=== PATIENT | male | born 1990 | race Caucasian/White ===

== ENCOUNTER 2020-05-04 17:23 | Inpatient (IN) | payer SELFPAY ==
[2020-05-04 18:41] VITALS: BP 118/65; PULSE 126; RESP 14; TEMP 38.7; O2SAT 96; BMI 22.8
[2020-05-04] MEDS: Acetaminophen 325 MG TABLET 650 MG PO (18:46)
--- NOTE | 2020-05-04 18:58 | XR_ITS ---
EXAMINATION: XR CHEST CLINICAL INFORMATION: Flank pain and fever COMPARISON: None TECHNIQUE: Frontal view of the chest was obtained. FINDINGS: No significant abnormality is noted involving the heart, lungs, mediastinum, bony thorax or soft tissues. XR/XR chest 1V IMPRESSION: Unremarkable examination.
--- NOTE | 2020-05-04 18:58 | ECG_ITS ---
Test Reason : FLU LIKE SYMP Blood Pressure : / mmHG Vent. Rate : 103 BPM Atrial Rate : 103 BPM P-R Int : 138 ms QRS Dur : 086 ms QT Int : 344 ms P-R-T Axes : 057 089 011 degrees QTc Int : 450 ms Sinus tachycardia Otherwise normal ECG No previous ECGs available Referred By: Mercedes Molina Electronically Signed By:KENNA ALEJO MD
--- NOTE | 2020-05-04 19:13 | ED.FEVER ---
HPI - Fever General Chief Complaint: Fever Stated Complaint: FEVER,CHILLS Time Seen by Provider: 05/04/20 18:55 Source: patient Mode of arrival: ambulatory Limitations: no limitations History of Present Illness HPI Narrative: 29-year-old male with no significant past medical history occasionally smokes marijuana presents with 2 days of malaise, fatigue, bilateral flank pain, dark brown urine, poor p.o. intake , palpitations and diaphoresis. He has been unable to get out of bed over the past 2 days. he denies chest pain and pressure, abdominal distention, edema, nausea, vomiting, diarrhea, constipation, sick contacts, headaches, difficulty moving arms and legs, trauma, crush injury, and excessive physical activity. MD elicited complaint: fever, malaise and weakness Onset (ago): day(s) (2) Relieving factors: nothing Associated symptoms: chills, myalgias, abdominal pain, dysuria and back/flank pain Treatments prior to arrival fever: acetaminophen, ibuprofen and cold medicine Related Data Home Medications Medication Instructions Recorded Confirmed No Known Home Meds 05/04/20 05/04/20 Allergies Allergy/AdvReac Type Severity Reaction Status Date / Time No Known Allergies Allergy Unverified 02/26/20 15:51 Review of Systems Review of Systems: Constitutional: Positive Fever, positive Chills ENT/Mouth: No sore throat Eyes: No Eye Pain, No Swelling, No Redness Cardiovascular: No Chest Pain, No SOB Respiratory: No Cough, No Sputum, No Wheezing Gastrointestinal: positive Nausea, no Vomiting, No Diarrhea, positive abdominal pain Genitourinary: positive Dysuria, no urinary frequency, no Hematuria, positive Flank Pain, no hesitancy Musculoskeletal: No joint pain, No Myalgias Skin: No Skin Lesions, No rash Neuro: No Numbness, No Headache, positive fatigue, positive weakness Psych: No Anxiety/Panic, No Depression Heme/Lymph: No Bruising, No Lymphadenopathy Endocrine: No Polyuria, No Polydipsia Yes all other systems are reviewed and are negative COUNT INCLUDES THE [facility] Past Medical History Attestation statement: The following information was validated with the patient. Medical History No known health problems Social History Social History Alcohol intake: never Smoked in Last 30 Days: No Use of substances other than those prescribed or required for medical reasons: No Advance Directives: No Advance Directives Information Provided: No Physical Exam Vital Signs: Vital Signs: Last Vital Signs Temp 98.7 F 05/04/20 23:54 Pulse 74 05/04/20 23:54 Resp 16 05/04/20 23:54 BP 116/62 05/04/20 23:54 Pulse Ox 98 05/04/20 23:54 Body Mass Index 22.8 Appearance: Alert. Oriented X3. moderate distress. febrile, tachycardic Head: Normal external exam. Normocephalic. Atraumatic. Eyes: PERRLA. EOMI. Conjunctiva and sclera normal. Eyelids normal. ENT: TM's Normal. Pharynx normal. Uvula midline. dry mucous membranes. No trismus noted. No drooling noted. No muffled voice noted. Neck: Normal inspection. Neck supple. No adenopathy. no meningeal signs. CVS: Tachycardic heart rate and rhythm. Heart sound normal. No murmurs noted. Pulses equal to all extremities. Respiratory: No respiratory distress. Painless inspiration. Breath sounds normal. No wheezes/rales/rhonchi noted. Chest nontender. No accessory muscle usage noted or decreased air movement noted. Abdomen: Soft and diffuse tenderness throughout all 4 quadrants. Bowel sounds normal in all 4 quadrants. No distention noted. No organomegaly noted. No visible injury noted. Back: significant bilateral CVA tenderness. Full range of motion noted. Skin: Skin warm and mildly diaphoretic. Normal skin color. Normal skin turgor. No rashes/lesions/lacerations noted. Extremities: No lower extremity edema. Extremities exhibit normal range of motion. Extremities nontender. Neuro: cranial nerves 2-12 intact, no focal neural deficits, strength 5/5 to all extremities, No motor deficit. No sensory deficit. Course Course Course Narrative: 29-year-old male with no significant past medical history occasionally smokes marijuana presents with 2 days of malaise, fatigue, bilateral flank pain, dark brown urine, poor p.o. intake and diaphoresis. He has been unable to get out of bed over the past 2 days. Initial lab values heart rate 126, temperature 101.6 oral, fit sepsis criteria, will order CBC, Chem 7, lactic, cultures, CT scan of chest and abdomen, resuscitate with 2 L of fluid and ceftriaxone. His urine is dark navya almost brown in color. Reevaluation(s) Reevaluation #1: 2 L normal saline completed, along with 1 g of ceftriaxone. Blood pressure is 105/53, heart rate 91, respiration rate 16, O2 sat 96% on room air. Patient appears more comfortable than initial presentation. Third L of normal saline infusing. CT scan of abdomen and chest pending. Time: 20:24 Reevaluation #2: discussion with hospitalist regarding plan of care, CT scan is negative for any acute findings, urinalysis indicates possible UTI however there are no nitrites or leukocyte esterase. We feel that source of infection has not been found, MRI is suggested however is unavailable tonight. We will give vancomycin and Zosyn, and admit for fever of unknown origin, sepsis, and possible UTI. Detailed discussion with patient regarding findings as well as plan to admit. Patient verbalized understanding of and agrees to plan of care. Time: 21:58 Consultations Consultation #1: Jonh Time: 20:22 MDM - Fever Differential Diagnosis Differential diagnosis: Likely fever of unknown origin, community acquired pneumonia, pyelonephritis, viral infection, sepsis and influenza Medical Records Attestation: I reviewed the patient's medical records. Lab Data Attestation: I reviewed the patient's lab results. Result diagrams: 05/04/20 19:14 05/04/20 19:14 Labs: Lab Results 05/04/20 05/04/20 05/04/20 Range/Units 19:14 19:14 19:14 WBC 16.3 H (4.8-10.8) X10*3/uL RBC 5.62 (4.60-5.80) X10*6/uL Hgb 16.5 (14.0-18.0) g/dl Hct 49.2 (42-52) % MCV 87.5 (80-98) fL MCH 29.4 (27.0-33.0) pg MCHC 33.5 (31.0-36.0) g/dl RDW 12.9 (11.0-16.0) % Plt Count 248 (160-400) X10*3/uL MPV 10.0 (9.4-12.4) fL Immature Gran % (Auto) 0.2 (0.0-0.4) % Neut % (Auto) 82.7 H (45-73) % Lymph % (Auto) 7.9 L (20-40) % Craven % (Auto) 8.8 (2-11) % Eos % (Auto) 0.1 (0-4) % Baso % (Auto) 0.3 (0-2) % Lymph # (Auto) 1.3 (1.2-4.9) X10*3/uL Craven # (Auto) 1.4 H (0.1-1.2) X10*3/uL Eos # (Auto) 0.0 (0.0-0.4) X10*3/uL Baso # (Auto) 0.1 (0.0-0.2) X10*3/uL Abs Immat Gran (auto) 0.04 H (0.00-0.03) X10*3/uL Absolute Neuts (auto) 13.5 H (2.0-8.3) X10*3/uL Absolute Nucleated RBC 0.000 (0.0-0.012) X10*3/uL Nucleated RBC % (auto) 0.0 (0.0-0.2) /100WBC Sodium 136 (135-145) mmol/L Potassium 3.4 (3.3-5.1) mmol/l Chloride 103 (96-108) mmol/L Carbon Dioxide 24 (22-29) mmol/L Anion Gap 12 (12-20) BUN 11 (9-16) mg/dL Creatinine 0.80 (0.5-1.4) mg/dL Estim Creat Clear Calc 133.0 Estimated GFR > 60 Random Glucose 121 H (60-115) mg/dL Lactic Acid 0.9 (0.5-2.0) mmol/L Calcium 9.2 (8.4-10.2) mg/dL Magnesium 1.9 (1.6-2.6) mg/dL Total Bilirubin 0.4 (0.0-1.0) mg/dL Direct Bilirubin 0.2 (0.0-0.5) mg/dL AST 13 (5-37) U/L ALT 11 (0-40) U/L Alkaline Phosphatase 71 (39-117) U/L Total Creatine Kinase 83 (38-174) U/L Troponin I High Sens (<3.5-35.0) ng/L Total Protein 7.5 (6.5-8.0) g/dL Albumin 4.3 (3.5-5.0) g/dL Lipase 6 L (8-78) U/L Urine Color Urine Appearance Urine pH (5.0-8.0) Ur Specific [place] (1.005-1.025) Urine Protein (NEG-TRACE) MG/DL Urine Glucose (UA) (NEG) MG/DL Urine Ketones (NEG) MG/DL Urine Blood (NEG) Urine Nitrite (NEG) Ur Leukocyte Esterase (NEG) Urine RBC (0) /HPF Urine WBC (0-4) /HPF Ur Squamous Epith Cells /LPF Calcium Oxalate Crystal /LPF Urine Bacteria /LPF Urine Mucus /LPF Coronavirus (PCR) (Negative) Influenza Type A (PCR) (Negative) Influenza Type B (PCR) (Negative) RSV RNA Qual (PCR) (Negative) 05/04/20 05/04/20 05/04/20 Range/Units 19:14 19:14 19:45 WBC (4.8-10.8) X10*3/uL RBC (4.60-5.80) X10*6/uL Hgb (14.0-18.0) g/dl Hct (42-52) % MCV (80-98) fL MCH (27.0-33.0) pg MCHC (31.0-36.0) g/dl RDW (11.0-16.0) % Plt Count (160-400) X10*3/uL MPV (9.4-12.4) fL Immature Gran % (Auto) (0.0-0.4) % Neut % (Auto) (45-73) % Lymph % (Auto) (20-40) % Craven % (Auto) (2-11) % Eos % (Auto) (0-4) % Baso % (Auto) (0-2) % Lymph # (Auto) (1.2-4.9) X10*3/uL [place]ven # (Auto) (0.1-1.2) X10*3/uL Eos # (Auto) (0.0-0.4) X10*3/uL Baso # (Auto) (0.0-0.2) X10*3/uL Abs Immat Gran (auto) (0.00-0.03) X10*3/uL Absolute Neuts (auto) (2.0-8.3) X10*3/uL Absolute Nucleated RBC (0.0-0.012) X10*3/uL Nucleated RBC % (auto) (0.0-0.2) /100WBC Sodium (135-145) mmol/L Potassium (3.3-5.1) mmol/l Chloride (96-108) mmol/L Carbon Dioxide (22-29) mmol/L Anion Gap (12-20) BUN (9-16) mg/dL Creatinine (0.5-1.4) mg/dL Estim Creat Clear Calc Estimated GFR Random Glucose (60-115) mg/dL Lactic Acid (0.5-2.0) mmol/L Calcium (8.4-10.2) mg/dL Magnesium (1.6-2.6) mg/dL Total Bilirubin (0.0-1.0) mg/dL Direct Bilirubin (0.0-0.5) mg/dL AST (5-37) U/L ALT (0-40) U/L Alkaline Phosphatase (39-117) U/L Total Creatine Kinase (38-174) U/L Troponin I High Sens < 3.5 (<3.5-35.0) ng/L Total Protein (6.5-8.0) g/dL Albumin (3.5-5.0) g/dL Lipase (8-78) U/L Urine Color YELLOW Urine Appearance HAZY Urine pH 6.0 (5.0-8.0) Ur Specific [place] 1.025 (1.005-1.025) Urine Protein 1+ H (NEG-TRACE) MG/DL Urine Glucose (UA) NEG (NEG) MG/DL Urine Ketones 15 (NEG) MG/DL Urine Blood TRACE (NEG) Urine Nitrite NEG (NEG) Ur Leukocyte Esterase NEG (NEG) Urine RBC 1-4 (0) /HPF Urine WBC 1-4 (0-4) /HPF Ur Squamous Epith Cells 1+ /LPF Calcium Oxalate Crystal 2+ /LPF Urine Bacteria 1+ /LPF Urine Mucus 2+ /LPF Coronavirus (PCR) NEGATIVE (Negative) Influenza Type A (PCR) NEGATIVE (Negative) Influenza Type B (PCR) NEGATIVE (Negative) RSV RNA Qual (PCR) NEGATIVE (Negative) Imaging Data CT scan - abdomen: Attestation: I personally reviewed and interpreted this imaging study as follows: Radiologist's impression: CHEST FINDINGS: LUNGS: The lungs are clear with no evidence of inflammation or nodules. MEDIASTINUM: The mediastinum is normal. VASCULAR: PLEURA: There is no pleural effusion. No pleural mass or thickening. AXILLA: No lymphadenopathy. OSSEOUS STRUCTURES: Unremarkable. ABDOMEN/PELVIC FINDINGS: PERITONEUM: No free fluid or free air. LIVER, GALLBLADDER, AND BILIARY TREE: Normal PANCREAS: Normal SPLEEN: Normal ADRENAL GLANDS AND KIDNEYS: Normal BOWEL LOOPS: Normal LYMPH NODES: Normal. Small inguinal nodes are present VASCULAR: Unremarkable. BONES: Unremarkable CT/CT abdomen pelvis wo con IMPRESSION: Negative CT scan of the chest abdomen and pelvis with no etiology found for the patient's fever. IMPRESSION: Unremarkable examination. No etiology for the patient's fever has not been found. CT scan - chest: Attestation: I personally reviewed and interpreted this imaging study as follows: Radiologist's impression: CHEST FINDINGS: LUNGS: The lungs are clear with no evidence of inflammation or nodules. MEDIASTINUM: The mediastinum is normal. VASCULAR: PLEURA: There is no pleural effusion. No pleural mass or thickening. AXILLA: No lymphadenopathy. OSSEOUS STRUCTURES: Unremarkable. ABDOMEN/PELVIC FINDINGS: PERITONEUM: No free fluid or free air. LIVER, GALLBLADDER, AND BILIARY TREE: Normal PANCREAS: Normal SPLEEN: Normal ADRENAL GLANDS AND KIDNEYS: Normal BOWEL LOOPS: Normal LYMPH NODES: Normal. Small inguinal nodes are present VASCULAR: Unremarkable. BONES: Unremarkable CT/CT abdomen pelvis wo con IMPRESSION: Negative CT scan of the chest abdomen and pelvis with no etiology found for the patient's fever. IMPRESSION: Unremarkable examination. No etiology for the patient's fever has not been found. Chest x-ray: Attestation: I personally reviewed and interpreted this imaging study as follows: Radiologist's impression: EXAMINATION: XR CHEST CLINICAL INFORMATION: Flank pain and fever COMPARISON: None TECHNIQUE: Frontal view of the chest was obtained. FINDINGS: No significant abnormality is noted involving the heart, lungs, mediastinum, bony thorax or soft tissues. XR/XR chest 1V IMPRESSION: Unremarkable examination. ECG Data ECG #1: Attestation: I personally reviewed and interpreted this ECG as follows: ECG interpretation date: 05/04/20 ECG interpretation time: 19:11 Interpretation: ventricular rate 103 beats per minute, p.r. interval 138 milliseconds, QT 344, QTC 450, sinus tachycardia, otherwise normal EKG. No indication of ischemia or ST wave changes indicating STEMI. Prior EKG is unavailable secondary to system failure. Critical Care Time Critical Care Time Critical Care Time: Yes Total Critical Care Time: 65 Attestation: I have personally provided critical care time exclusive of time spent on separately billable procedures. Time includes review of laboratory data, radiology results, discussion with consultants, and monitoring for potential decompensation. Interventions were performed as documented. Discharge Plan Discharge Clinical Impression: Fever of unknown origin, Acute UTI Sepsis Qualifiers: Sepsis type: sepsis due to unspecified organism Sepsis acute organ dysfunction status: unspecified Qualified Code(s): A41.9 - Sepsis, unspecified organism Patient Disposition: Admitted As Inpatient
[2020-05-04 19:28] LABS: MANUAL DIFF FLAG NO
[2020-05-04] MEDS: cefTRIAXone sodium 1 GM in 0.9 % Sodium Chloride 50 ML IV (19:30)
[2020-05-04] MEDS: Ketorolac Tromethamine 30 MG/ML VIAL IVPUSH (19:31)
[2020-05-04] MEDS: 0.9 % Sodium Chloride 1,000 ML 999 ML IVCONT ×3 (19:31→20:55)
[2020-05-04 19:32] LABS: Basophils Absolute Auto 0.1 X10*3/uL (0.0-0.2); Basophils Percent Auto 0.3 % (0-2); Eosinophils Percent Auto 0.1 % (0-4); Glucose Urine UA NEG (NEG); Hematocrit 49.2 % (42-52); Hemoglobin 16.5 g/dl (14.0-18.0); Imm Gran Abs Auto 0.04 X10*3/uL (0.00-0.03); Imm Gran Pct Auto 0.2 % (0.0-0.4); Leukocyte Esterase Urine NEG (NEG); Lymphocytes Absolute Auto 1.3 X10*3/uL (1.2-4.9); Lymphocytes Percent Auto 7.9 % (20-40); Mean Corpuscular HGB Conc 33.5 g/dl (31.0-36.0); Mean Corpuscular Hemoglobin 29.4 pg (27.0-33.0); Mean Corpuscular Volume 87.5 fL (80-98); Monocytes Absolute Auto 1.4 X10*3/uL (0.1-1.2); Monocytes Percent Auto 8.8 % (2-11); Neutrophils Absolute Auto 13.5 X10*3/uL (2.0-8.3); Neutrophils Percent Auto 82.7 % (45-73); Nitrite Urine NEG (NEG); Platelet Count 248 X10*3/uL (160-400); Red Blood Count 5.62 X10*6/uL (4.60-5.80); Red Cell Distribution Width 12.9 % (11.0-16.0); Specific Gravity - Urine 1.025 (1.005-1.025); Urine Blood TRACE (NEG); Urine Ketones 15 MG/DL (NEG); Urine Protein 1+ MG/DL (NEG-TRACE); White Blood Count 16.3 X10*3/uL (4.8-10.8)
[2020-05-04 19:35] LABS: Appearance Urine HAZY; Color Urine YELLOW
[2020-05-04 19:46] LABS: Lactic Acid 0.9 mmol/L (0.5-2.0)
[2020-05-04 19:52] LABS: Alanine Aminotransferase 11 U/L (0-40); Albumin Level 4.3 g/dL (3.5-5.0); Alkaline Phosphatase 71 U/L (39-117); Anion Gap 12 (12-20); Aspartate Amino Transferase 13 U/L (5-37); Bilirubin Direct 0.2 mg/dL (0.0-0.5); Bilirubin Total 0.4 mg/dL (0.0-1.0); Blood Urea Nitrogen 11 mg/dL (9-16); Calcium 9.2 mg/dL (8.4-10.2); Carbon Dioxide 24 mmol/L (22-29); Chloride 103 mmol/L (96-108); Estimated Glomerular Filt Rate > 60; Glucose Random 121 mg/dL (60-115); Lipase 6 U/L (8-78); Magnesium 1.9 mg/dL (1.6-2.6); Potassium 3.4 mmol/l (3.3-5.1); Sodium 136 mmol/L (135-145); Total Protein 7.5 g/dL (6.5-8.0)
[2020-05-04 19:58] LABS: Troponin-I High Sensitivity < 3.5 ng/L (<3.5-35.0)
--- NOTE | 2020-05-04 20:05 | CT_ITS ---
EXAMINATION: CT CHEST, ABDOMEN AND PELVIS without CONTRAST CLINICAL INFORMATION: Fever COMPARISON: None TECHNIQUE: Multidetector volumetric CT imaging of the chest, abdomen and pelvis was obtained after without intravenous contrast. Axial MIP volume rendering provided. Sagittal and coronal reformatted images were obtained. This CT examination was performed using dose optimization techniques as appropriate, variously including the following: *Automated exposure control *Adjustment of mA and/or kV according to patient size (this includes techniques or standardized protocols for targeted exams where dose is matched to indication/reason for exam; i.e. extremities or head) *Use of iterative reconstruction technique DLP: 721 mGy-cm CHEST FINDINGS: LUNGS: The lungs are clear with no evidence of inflammation or nodules. MEDIASTINUM: The mediastinum is normal. VASCULAR: PLEURA: There is no pleural effusion. No pleural mass or thickening. AXILLA: No lymphadenopathy. OSSEOUS STRUCTURES: Unremarkable. ABDOMEN/PELVIC FINDINGS: PERITONEUM: No free fluid or free air. LIVER, GALLBLADDER, AND BILIARY TREE: Normal PANCREAS: Normal SPLEEN: Normal ADRENAL GLANDS AND KIDNEYS: Normal BOWEL LOOPS: Normal LYMPH NODES: Normal. Small inguinal nodes are present VASCULAR: Unremarkable. BONES: Unremarkable CT/CT abdomen pelvis wo con IMPRESSION: Negative CT scan of the chest abdomen and pelvis with no etiology found for the patient's fever. IMPRESSION: Unremarkable examination. No etiology for the patient's fever has not been found.
[2020-05-04 20:18] LABS: Bacteria Urine 1+ /LPF; Calcium Oxalate Crystals Urine 2+ /LPF; Mucus Urine 2+ /LPF; Squamous Epithelial Cell Urine 1+ /LPF
[2020-05-04 20:32] LABS: Influenza A PCR NEGATIVE (Negative); Influenza B PCR NEGATIVE (Negative); Resp Syncy Virus RNA Qual PCR NEGATIVE (Negative); SARS COV2 PCR INHOUSE NEGATIVE (Negative)
[2020-05-04 20:55] VITALS: BP 127/59; PULSE 98; RESP 18; TEMP 37.2; O2SAT 98
[2020-05-04] MEDS: Piperacillin Sodium/Tazobactam 3.375 GM in 0.9 % Sodium Chloride 50 ML IV (22:08)
[2020-05-04 22:26] VITALS: BP 110/76; PULSE 63; RESP 16; O2SAT 100
[2020-05-04] MEDS: vancomycin HCL 1,000 MG in 0.9 % Sodium Chloride 250 ML 270 MG IV (23:27)
[2020-05-04 23:54] VITALS: BP 116/62; PULSE 74; RESP 16; TEMP 37.1; O2SAT 98
--- NOTE | 2020-05-05 | US_ITS ---
EXAMINATION: US RETROPERITONEAL LIMITED (RENAL ONLY) CLINICAL INFORMATION: Flank pain and sepsis. COMPARISON: Previous CT of the abdomen and pelvis from yesterday TECHNIQUE: Grayscale and color imaging of the kidneys FINDINGS: RIGHT KIDNEY: 10.7 x 5.4 x 5.3 cm (SAG x AP x TRV). The kidney is normal in size, contour, and echogenicity. Renal cortical thickness is normal. No calculi or focal parenchymal lesions. No hydronephrosis. LEFT KIDNEY: 10.8 x 6.8 x 5.5 cm (SAG x AP x TRV). The kidney is normal in size, contour, and echogenicity. Renal cortical thickness is normal. There is a 1.8 x 1.2 x 1.4 cm complex cyst in the midpole with 2 septations. This is not well appreciated by noncontrast enhanced CT scan. No calculi or mass. No hydronephrosis. US/US renal BI IMPRESSION: Normal right kidney. 1.8 x 1.2 x 1.4 cm complex cyst with 2 septations in the midpole of the left kidney. This is not well appreciated by CT scan. Follow-up renal imaging with MRI or CT with and without contrast is recommended.
[2020-05-05 01:41] VITALS: BP 124/64; PULSE 80; RESP 18; TEMP 36.3; O2SAT 97
[2020-05-05] MEDS: cefEPime HCl 1 GM in 0.9 % Sodium Chloride 50 ML IV ×2 (02:07→09:11)
[2020-05-05] MEDS: 0.9 % Sodium Chloride Flush 3 ML SYRINGE IVFLUSH ×2 (02:07→09:11)
[2020-05-05 03:06] VITALS: BP 115/57; PULSE 78; RESP 78; TEMP 37.3; O2SAT 98
--- NOTE | 2020-05-05 04:36 | P.HPHOSP_ITS ---
History of Present Illness Date of Service: 05/04/20 Chief Complaint: lower back pain this is a 29-year-old male with no significant past medical history presents to the hospital with acute onset of lower right back pain. Patient reports that he has also been having fever and chills. He describes the pain as cramping, 10/10, nonradiating, associated with chills and shivers, feeling feverish, worsened with movement. He denies any urinary symptoms including no frequency , hematuria,dysuria or urgency. He denies any previous similar episode no history of kidney stones. He has no numbness or tingling or weakness in his lower or upper extremities. denies any history of IV drug use or back injury. He otherwise denies any nausea vomiting, chest pain, no shortness of breath or cough, no diarrhea or constipation. No abdominal pain. No lower extremity edema. On arrival to the ED patient found to have a temp of 101.6?, pulse rate of 126, respiratory rate of 14, blood pressure 118/65, satting 96 % on room air labs are significant for WBC count of 16.3, lipase of 6, UA that is negative for any nitrites, leukocyte Estrace, and has small amount of WBC. COVID-[address] abdomen and pelvis showed no acute etiology for patient's fever. past medical history: denies Past surgical history: Denies Family history: Denies social history: Comes from home, he works in construction, denies lifting anything heavy.denies any tobacco alcohol or illicit drugs Review of Systems Review of Systems: Yes all other systems are reviewed and are negative [facility] Medical History No known health problems Social History Household Members: Family Housing: House Do you presently have visiting nurse or other home services: No Alcohol intake: never Smoking Status: Never smoker Smoked in Last 30 Days: No Use of substances other than those prescribed or required for medical reasons: Yes Substance Use Type: Marijuana Substance Use Frequency: Daily Have you been hit, kicked, punched, or otherwise hurt by someone within the past year? If so, by whom?: No Do you feel safe in your current relationship?: Yes Is there a partner from a previous relationship who is making you feel unsafe now?: No Are you made to feel afraid or neglected: No Advance Directives: No Advance Directives Information Provided: No Do you have thoughts of harming others: None Do you have a plan to hurt others: No Plan Recently lost weight without trying: No Meds Allergies Allergy/AdvReac Type Severity Reaction Status Date / Time No Known Allergies Allergy Unverified 02/26/20 15:51 Home Medications Medication Instructions Recorded Confirmed Type No Known Home Meds 05/04/20 05/04/20 History Physical Exam Vital Signs and Narrative: Vital Signs: Last Vital Signs Temp 99.2 F 05/05/20 03:06 Pulse 78 05/05/20 03:06 Resp 78 H 05/05/20 03:06 BP 115/57 L 05/05/20 03:06 Pulse Ox 98 05/05/20 03:06 Body Mass Index 22.8 Const: General: cooperative and no acute distress Orientation/consciousness: patient oriented x3 Eyes: General: appearance normal, both eyes and all related structures Pupils: Equal, round and reactive pupils present Resp: Effort & Inspection: normal respiratory effort and able to speak in complete sentences Auscultation: clear to auscultation bilaterally Cardio: Rate: regular rate Rhythm: regular rhythm GI: Palpation (GI): Soft to palpation Auscultation: normal bowel sounds : Other: Has CVA tenderness on the right, Back/Spine/Pelvis: Other: no significant tenderness on palpation of the spine, no evidence of injury, abnormality Skin: General skin exam: no rashes or lesions noted Neuro: General: patient oriented x3 Cranial nerves: Yes Equal, round and reactive pupils present Cognition (Neuro): normal cognition Extrem: General: Yes normal to inspection and Yes no pedal edema Results Labs CBC and Chem 7: 05/04/20 19:14 05/04/20 19:14 Labs: Laboratory Results - last 24 hr 05/04/20 05/04/20 05/04/20 19:14 19:14 19:14 MCV 87.5 MCH 29.4 MCHC 33.5 RDW 12.9 Plt Count 248 MPV 10.0 Immature Gran % (Auto) 0.2 Neut % (Auto) 82.7 H Lymph % (Auto) 7.9 L [place] % (Auto) 8.8 Eos % (Auto) 0.1 Baso % (Auto) 0.3 Lymph # (Auto) 1.3 [place] # (Auto) 1.4 H Eos # (Auto) 0.0 Baso # (Auto) 0.1 Abs Immat Gran (auto) 0.04 H Absolute Neuts (auto) 13.5 H Absolute Nucleated RBC 0.000 Nucleated RBC % (auto) 0.0 Anion Gap 12 Estim Creat Clear Calc 133.0 Estimated GFR > 60 Random Glucose 121 H Lactic Acid 0.9 Calcium 9.2 Magnesium 1.9 Total Bilirubin 0.4 Direct Bilirubin 0.2 AST 13 ALT 11 Alkaline Phosphatase 71 Total Creatine Kinase 83 Troponin I High Sens Total Protein 7.5 Albumin 4.3 Lipase 6 L Urine Color Urine Appearance Urine pH Ur Specific [place] Urine Protein Urine Glucose (UA) Urine Ketones Urine Blood Urine Nitrite Ur Leukocyte Esterase Urine RBC Urine WBC Ur Squamous Epith Cells Calcium Oxalate Crystal Urine Bacteria Urine Mucus Coronavirus (PCR) Influenza Type A (PCR) Influenza Type B (PCR) RSV RNA Qual (PCR) 05/04/20 05/04/20 05/04/20 19:14 19:14 19:45 MCV MCH MCHC RDW Plt Count MPV Immature Gran % (Auto) Neut % (Auto) Lymph % (Auto) [place] % (Auto) Eos % (Auto) Baso % (Auto) Lymph # (Auto) [place] # (Auto) Eos # (Auto) Baso # (Auto) Abs Immat Gran (auto) Absolute Neuts (auto) Absolute Nucleated RBC Nucleated RBC % (auto) Anion Gap Estim Creat Clear Calc Estimated GFR Random Glucose Lactic Acid Calcium Magnesium Total Bilirubin Direct Bilirubin AST ALT Alkaline Phosphatase Total Creatine Kinase Troponin I High Sens < 3.5 Total Protein Albumin Lipase Urine Color YELLOW Urine Appearance HAZY Urine pH 6.0 Ur Specific [place] 1.025 Urine Protein 1+ H Urine Glucose (UA) NEG Urine Ketones 15 Urine Blood TRACE Urine Nitrite NEG Ur Leukocyte Esterase NEG Urine RBC 1-4 Urine WBC 1-4 Ur Squamous Epith Cells 1+ Calcium Oxalate Crystal 2+ Urine Bacteria 1+ Urine Mucus 2+ Coronavirus (PCR) NEGATIVE Influenza Type A (PCR) NEGATIVE Influenza Type B (PCR) NEGATIVE RSV RNA Qual (PCR) NEGATIVE Imaging Radiologist's Impressions: Impressions Chest X-Ray 05/04/20 18:58 IMPRESSION: Unremarkable examination. Abdomen/Pelvis CT 05/04/20 20:05 IMPRESSION: Negative CT scan of the chest abdomen and pelvis with no etiology found for the patient's fever. IMPRESSION: Unremarkable examination. No etiology for the patient's fever has not been found. Chest CT 05/04/20 20:05 IMPRESSION: Negative CT scan of the chest abdomen and pelvis with no etiology found for the patient's fever. IMPRESSION: Unremarkable examination. No etiology for the patient's fever has not been found. Assessment and Plan (1) Fever of unknown origin: Status: Acute (2) Sepsis: Qualifiers: Sepsis acute organ dysfunction status: unspecified Sepsis type: sepsis due to unspecified organism Qualified Code(s): A41.9 - Sepsis, unspecified organism Status: Acute (3) Leukocytosis: Status: Acute this is a 29-year-old male who presents to the hospital with evidence of infection although source is unknown. # Sepsis - fevers, has leukocytosis as well as tachycardia - UA negative, CT abdomen and chest negative - given his CVA tenderness as well as significant flank pain,a kidney stone is a possibility although CT abdomen is negative and UA is negative for any leukocyte esterase or nitrates, has no urinary symptoms - no history of IV drug use or back injury to suggest spinal abscess - has no meningeal signs plan: - Will start him on broad-spectrum antibiotic including vanc and cefepime given his clinical findings - blood cultures collected in the ED will follow and adjust/cancer antibiotics accordingly - IV fluid - renal ultrasound # leukocytosis - unclear what the source is at this time - a kidney stone is a possibility although CT abdomen is negative and UA is negative for any leukocyte esterase or nitrates, has no urinary symptoms plan: - Follow CBC DVT prophylaxis: Lovenox
[2020-05-05 04:41] LABS: Basophils Absolute Auto 0.1 X10*3/uL (0.0-0.2); Basophils Percent Auto 0.4 % (0-2); Eosinophils Absolute Auto 0.1 X10*3/uL (0.0-0.4); Eosinophils Percent Auto 0.6 % (0-4); Hematocrit 44.8 % (42-52); Hemoglobin 14.5 g/dl (14.0-18.0); Imm Gran Abs Auto 0.04 X10*3/uL (0.00-0.03); Imm Gran Pct Auto 0.3 % (0.0-0.4); Lymphocytes Absolute Auto 1.7 X10*3/uL (1.2-4.9); Lymphocytes Percent Auto 12.2 % (20-40); MANUAL DIFF FLAG SCAN; Mean Corpuscular HGB Conc 32.4 g/dl (31.0-36.0); Mean Corpuscular Hemoglobin 29.2 pg (27.0-33.0); Mean Corpuscular Volume 90.1 fL (80-98); Mean Platelet Volume 9.9 fL (9.4-12.4); Monocytes Absolute Auto 1.5 X10*3/uL (0.1-1.2); Monocytes Percent Auto 10.7 % (2-11); Neutrophils Absolute Auto 10.7 X10*3/uL (2.0-8.3); Neutrophils Percent Auto 75.8 % (45-73); Platelet Count 194 X10*3/uL (160-400); Red Blood Count 4.97 X10*6/uL (4.60-5.80); Red Cell Distribution Width 13.1 % (11.0-16.0); SCAN SMEAR FLAG 1; White Blood Count 14.2 X10*3/uL (4.8-10.8)
[2020-05-05 05:08] LABS: SLIDE REVIEW VERIFIED
[2020-05-05 05:12] LABS: Anion Gap 10 (12-20); Blood Urea Nitrogen 9 mg/dL (9-16); Calcium 7.8 mg/dL (8.4-10.2); Carbon Dioxide 23 mmol/L (22-29); Chloride 108 mmol/L (96-108); Creatinine Clr Calc Pharmacy 145.8; Estimated Glomerular Filt Rate > 60; Glucose Random 131 mg/dL (60-115); Potassium 3.7 mmol/l (3.3-5.1); Sodium 137 mmol/L (135-145)
[2020-05-05] MEDS: Enoxaparin Sodium 40 MG/0.4 ML SYRINGE SUBCUT (06:15)
[2020-05-05 07:27] VITALS: BP 121/62; PULSE 83; RESP 19; TEMP 37.4; O2SAT 99
--- NOTE | 2020-05-05 09:01 | MHC.CM.PN ---
PATIENT IS INDEPENDENT WITH ALL ADLS. HIS CAR IS IN LOT AND HE IS HOPING TO BE ABLE TO GO HOME TODAY. HE STATES THAT HE HAS [facility], BUT IS UNSURE OF THE NAME OF HIS PCP PATIENT IS ASKING FOR A WORK NOTE AT TIME OF DISCHARGE
--- NOTE | 2020-05-05 09:12 | MHC.CM.PN ---
PATIENT REGISTRATION WILL DO A SEARCH FOR PATIENT'S [facility] INFORMATION AND CONTACT THIS MANAGER BRANCH.
[2020-05-05] MEDS: Acetaminophen 325 MG TABLET 650 MG PO (09:18)
[2020-05-05] MEDS: vancomycin HCL 1,000 MG in 0.9 % Sodium Chloride 250 ML 270 MG IV (11:08)
[2020-05-05 11:14] VITALS: BP 119/73; PULSE 76; RESP 18; TEMP 36.5; O2SAT 98
--- NOTE | 2020-05-05 11:22 | MHC.CM.PN ---
REGISTRATION CONFIRMED THAT [facility] BENEFITS ARE INACTIVE. FACE SHEET FAXED TO [facility]. CASE MANAGEMENT FOLLOWING.
[2020-05-05 11:31] LABS: Adenovirus PCR Not Detected (Not Detect.); Bordetella parapertussis PCR Not Detected (Not Detect.); Bordetella pertussis PCR Not Detected (Not Detect.); Chlamydia pneumoniae PCR Not Detected (Not Detect.); Coronavirus 229E PCR Not Detected (Not Detect.); Coronavirus HKU1 PCR Not Detected (Not Detect.); Coronavirus NL63 PCR Not Detected (Not Detect.); Coronavirus OC43 PCR Not Detected (Not Detect.); Human metapneumovirus PCR Not Detected (Not Detect.); Influenza A PCR Not Detected (Not Detect.); Influenza B PCR Not Detected (Not Detect.); Mycoplasma pneumoniae PCR Not Detected (Not Detect.); Parainfluenza 1 PCR Not Detected (Not Detect.); Parainfluenza 2 PCR Not Detected (Not Detect.); Parainfluenza 3 PCR Not Detected (Not Detect.); Parainfluenza 4 PCR Not Detected (Not Detect.); RSV PCR Not Detected (Not Detect.); Rhino/Enterovirus PCR Not Detected (Not Detect.); SARS-CoV-2 PCR Not Detected (Not Detect.)
--- NOTE | 2020-05-05 13:06 | P.CNID_ITS ---
History of Present Illness Data of Consult Service Date: 05/05/20 Requesting physician: Mars Delgado Primary Care Provider: Riki Physician HPI Reason for consult: fever of unknown origin He presents to ER with two days of dysuria and dark brown color He has bilateral flank and perineal discomfort He has had temperature to [address] and chest CT are unremarkable Blood cultures are unremarkable Review of Systems Review of Systems: Yes all other systems are reviewed and are negative PMFSH Past Medical History Medical History No known health problems Social History Social History Household Members: Family Housing: House Do you presently have visiting nurse or other home services: No Alcohol intake: never Smoking Status: Never smoker Smoked in Last 30 Days: No Use of substances other than those prescribed or required for medical reasons: Yes Substance Use Type: Marijuana Substance Use Frequency: Daily Currently Displaying Signs/Symptoms of Drug Intoxication Withdrawal: No Have you been hit, kicked, punched, or otherwise hurt by someone within the past year? If so, by whom?: No Do you feel safe in your current relationship?: Yes Is there a partner from a previous relationship who is making you feel unsafe now?: No Are you made to feel afraid or neglected: No Advance Directives: No Advance Directives Information Provided: No Do you have thoughts of harming others: None Do you have a plan to hurt others: No Plan Recently lost weight without trying: No service: No Current occupational status: employed Meds Allergies Allergy/AdvReac Type Severity Reaction Status Date / Time No Known Allergies Allergy Unverified 02/26/20 15:51 Physical Exam Vital Signs: Vital Signs: Last Vital Signs Temp 97.7 F 05/05/20 11:14 Pulse 76 05/05/20 11:14 Resp 18 05/05/20 11:14 BP 119/73 05/05/20 11:14 Pulse Ox 98 05/05/20 11:14 Body Mass Index 22.8 Const: General: cooperative HENMT: Head: Yes normal to inspection Mouth: oropharynx normal Eyes: General: appearance normal, both eyes and all related structures Resp: Effort & Inspection: normal respiratory effort Cardio: Rate: regular rate Rhythm: regular rhythm GI: Inspection: Yes normal to inspection : General: Yes CVA tenderness Back/Spine/Pelvis: Back: CVA tenderness Assessment and Plan (1) Leukocytosis: Problem details: Probably related to genitourinary process Possible GC/chlamydia Status: Acute (2) Fever of unknown origin: Problem details: Possibly genitourinary process Status: Acute Would switch to po Doxycycline for 14 days Await blood cultures Check urine GC/chlamydia,check tick panel If weakness legs or fever continues then check MRI of LS spine Results Labs CBC & Chem 7: 05/05/20 04:32 05/05/20 04:32 Labs: Short CBC 05/04/20 05/05/20 Range/Units 19:14 04:32 WBC 16.3 H 14.2 H (4.8-10.8) X10*3/uL Hgb 16.5 14.5 (14.0-18.0) g/dl Hct 49.2 44.8 (42-52) % Plt Count 248 194 (160-400) X10*3/uL BMP 05/04/20 05/05/20 19:14 04:32 Sodium 136 137 Potassium 3.4 3.7 Chloride 103 108 Carbon Dioxide 24 23 BUN 11 9 Creatinine 0.80 0.73 Calcium 9.2 7.8 L D Cardiac Enzymes 05/04/20 Range/Units 19:14 Total Creatine Kinase 83 (38-174) U/L Liver Function 05/04/20 Range/Units 19:14 Total Bilirubin 0.4 (0.0-1.0) mg/dL Direct Bilirubin 0.2 (0.0-0.5) mg/dL AST 13 (5-37) U/L ALT 11 (0-40) U/L Alkaline Phosphatase 71 (39-117) U/L Albumin 4.3 (3.5-5.0) g/dL Urine 05/04/20 Range/Units 19:14 Urine Color YELLOW Urine Appearance HAZY Urine pH 6.0 (5.0-8.0) Ur Specific [place] 1.025 (1.005-1.025) Urine Protein 1+ H (NEG-TRACE) MG/DL Urine Glucose (UA) NEG (NEG) MG/DL
[2020-05-05 15:02] VITALS: BP 112/59; PULSE 68; RESP 17; TEMP 36.6; O2SAT 99
--- NOTE | 2020-05-05 15:25 | PM.DS ---
DS: Providers Provider Date of admission: 05/04/20 22:34 Primary care physician: None Physician Consults: 05/05/20 10:33 Consult to Infectious Diseases Routine Consulting Provider: Luci Frye Reason for consultation: fever or umknow sourcde DS: Diagnosis Discharge Diagnosis (1) Leukocytosis: Status: Acute Problem details: Probably related to genitourinary process Possible GC/chlamydia (2) Fever of unknown origin: Status: Acute Problem details: Possibly genitourinary process DS: Medications Discharge Medications Home Medications: Home Medications Medication Instructions Recorded Confirmed No Known Home Meds 05/04/20 05/04/20 DS: Summary Hospital Course Hospital Course: Patient presented with one episode of fever or 101 and some righ sided pain. Work up with CT, US are negative. He has not have marline further fever. He was seen by ID with concern for possible GC/Chlaemdia and recommend 14 days Doxycyline. Tick pannel has been requested with Babesia, A. Phagocyophilum Cmmt and E. Chaffeensis are pending. Covid and viral pannel negative. Time Spent with Patient Time attestation: Total time spent providing and/or coordinating discharge services: Physical Exam Vital Signs: Vital Signs: Last Vital Signs Temp 97.8 F 05/05/20 15:02 Pulse 68 05/05/20 15:02 Resp 17 05/05/20 15:02 BP 112/59 L 05/05/20 15:02 Pulse Ox 99 05/05/20 15:02 Body Mass Index 22.8 General: AO X 3, no acute distress Resp: CTA bilateral CVS: S1,S2,RRR GI: +BS, NT, no distention Skin: No rash Neuro: motor grossly intact Psych: appropriate affect DS: Data Data Completed and Pending Labs on day of discharge: 05/04/20 18:44 Acetaminophen [Tylenol] 650 mg PO ONCE ONE 05/04/20 18:58 ECG 12 lead EKG Stat EKG Documentation DIRECTED XR chest 1V Stat 05/04/20 18:59 Acetaminophen [Tylenol] 650 mg PO ONCE ONE 05/04/20 19:00 0.9 % Sodium Chloride [Ns] 1,000 ml IVCONT 999 mls/hr 05/04/20 19:13 cefTRIAXone sodium [Rocephin] 1 gm 0.9 % Sodium Chloride [Ns] 50 ml IV ONCE 05/04/20 19:14 Basic Metabolic Panel Stat Complete Blood Count Auto Diff Stat Creatine Kinase Total Stat Lactic Acid Stat Lipase Stat Liver Panel Stat Magnesium Stat Troponin-I High Sensitivity Stat 05/04/20 19:15 0.9 % Sodium Chloride [Ns] 1,000 ml IVCONT 999 mls/hr 05/04/20 19:21 Ketorolac Tromethamine [Toradol] 30 mg IVPUSH ONCE ONE cefTRIAXone sodium [Rocephin] 1 gm .ROUTE .STK-MED ONE 05/04/20 19:45 SARS-CoV2/FLU/RSV Stat 05/04/20 20:05 CT abdomen pelvis wo con Stat CT chest wo con Stat 05/04/20 20:30 0.9 % Sodium Chloride [Ns] 1,000 ml IVCONT 999 mls/hr 05/04/20 21:26 Add Laboratory Test Stat 05/04/20 21:49 Piperacillin Sodium/Tazobactam [Zosyn] 3.375 gm 0.9 % Sodium Chloride [Ns] 50 ml IV ONCE vancomycin HCL 1,000 mg 0.9 % Sodium Chloride [Ns] 250 ml IV ONCE 05/04/20 21:58 Piperacillin Sodium/Tazobactam [Zosyn] 3.375 gm IV .STK-MED ONE vancomycin HCL 1,000 mg .ROUTE .STK-MED ONE 05/04/20 22:33 Transfer Order Routine 05/05/20 US renal BI Routine 05/05/20 01:54 cefEPime HCl [Maxipime] 1 gm IV .STK-MED ONE 05/05/20 02:00 cefEPime HCl [Maxipime] 1 gm 0.9 % Sodium Chloride [Ns] 50 ml IV Q8H 05/05/20 04:32 Basic Metabolic Panel Routine Complete Blood Count Auto Diff Routine SLIDE REVIEW Routine 05/05/20 08:00 vancomycin HCL 750 mg vancomycin HCL 500 mg 0.9 % Sodium Chloride [Ns] 250 ml IV Q24H 05/05/20 09:01 cefEPime HCl [Maxipime] 1 gm IV .STK-MED ONE 05/05/20 11:00 vancomycin HCL 1,000 mg .ROUTE .STK-MED ONE vancomycin HCL 1,000 mg 0.9 % Sodium Chloride [Ns] 250 ml IV Q12H 05/05/20 11:06 Respiratory Panel Urgent Laboratory Last Values WBC 14.2 X10*3/uL (4.8-10.8) H 05/05/20 04:32 RBC 4.97 X10*6/uL (4.60-5.80) 05/05/20 04:32 Hgb 14.5 g/dl (14.0-18.0) 05/05/20 04:32 Hct 44.8 % (42-52) 05/05/20 04:32 MCV 90.1 fL (80-98) 05/05/20 04:32 MCH 29.2 pg (27.0-33.0) 05/05/20 04:32 MCHC 32.4 g/dl (31.0-36.0) 05/05/20 04:32 RDW 13.1 % (11.0-16.0) 05/05/20 04:32 Plt Count 194 X10*3/uL (160-400) 05/05/20 04:32 MPV 9.9 fL (9.4-12.4) 05/05/20 04:32 Immature Gran % (Auto) 0.3 % (0.0-0.4) 05/05/20 04:32 Neut % (Auto) 75.8 % (45-73) H 05/05/20 04:32 Lymph % (Auto) 12.2 % (20-40) L 05/05/20 04:32 [place] % (Auto) 10.7 % (2-11) 05/05/20 04:32 Eos % (Auto) 0.6 % (0-4) 05/05/20 04:32 Baso % (Auto) 0.4 % (0-2) 05/05/20 04:32 Lymph # (Auto) 1.7 X10*3/uL (1.2-4.9) 05/05/20 04:32 [place] # (Auto) 1.5 X10*3/uL (0.1-1.2) H 05/05/20 04:32 Eos # (Auto) 0.1 X10*3/uL (0.0-0.4) 05/05/20 04:32 Baso # (Auto) 0.1 X10*3/uL (0.0-0.2) 05/05/20 04:32 Abs Immat Gran (auto) 0.04 X10*3/uL (0.00-0.03) H 05/05/20 04:32 Absolute Neuts (auto) 10.7 X10*3/uL (2.0-8.3) H 05/05/20 04:32 Absolute Nucleated RBC 0.000 X10*3/uL (0.0-0.012) 05/05/20 04:32 Nucleated RBC % (auto) 0.0 /100WBC (0.0-0.2) 05/05/20 04:32 Smear Tech's Comments VERIFIED 05/05/20 04:32 Sodium 137 mmol/L (135-145) 05/05/20 04:32 Potassium 3.7 mmol/l (3.3-5.1) 05/05/20 04:32 Chloride 108 mmol/L (96-108) 05/05/20 04:32 Carbon Dioxide 23 mmol/L (22-29) 05/05/20 04:32 Anion Gap 10 (12-20) L 05/05/20 04:32 BUN 9 mg/dL (9-16) 05/05/20 04:32 Creatinine 0.73 mg/dL (0.5-1.4) 05/05/20 04:32 Estim Creat Clear Calc 145.8 05/05/20 04:32 Estimated GFR > 60 05/05/20 04:32 Random Glucose 131 mg/dL (60-115) H 05/05/20 04:32 Lactic Acid 0.9 mmol/L (0.5-2.0) 05/04/20 19:14 Calcium 7.8 mg/dL (8.4-10.2) L D 05/05/20 04:32 Magnesium 1.9 mg/dL (1.6-2.6) 05/04/20 19:14 Total Bilirubin 0.4 mg/dL (0.0-1.0) 05/04/20 19:14 Direct Bilirubin 0.2 mg/dL (0.0-0.5) 05/04/20 19:14 AST 13 U/L (5-37) 05/04/20 19:14 ALT 11 U/L (0-40) 05/04/20 19:14 Alkaline Phosphatase 71 U/L (39-117) 05/04/20 19:14 Total Creatine Kinase 83 U/L (38-174) 05/04/20 19:14 Troponin I High Sens < 3.5 ng/L (<3.5-35.0) 05/04/20 19:14 Total Protein 7.5 g/dL (6.5-8.0) 05/04/20 19:14 Albumin 4.3 g/dL (3.5-5.0) 05/04/20 19:14 Lipase 6 U/L (8-78) L 05/04/20 19:14 Urine Color YELLOW 05/04/20 19:14 Urine Appearance HAZY 05/04/20 19:14 Urine pH 6.0 (5.0-8.0) 05/04/20 19:14 Ur Specific [place] 1.025 (1.005-1.025) 05/04/20 19:14 Urine Protein 1+ MG/DL (NEG-TRACE) H 05/04/20 19:14 Urine Glucose (UA) NEG MG/DL (NEG) 05/04/20 19:14 Urine Ketones 15 MG/DL (NEG) 05/04/20 19:14 Urine Blood TRACE (NEG) 05/04/20 19:14 Urine Nitrite NEG (NEG) 05/04/20 19:14 Ur Leukocyte Esterase NEG (NEG) 05/04/20 19:14 Urine RBC 1-4 /HPF (0) 05/04/20 19:14 Urine WBC 1-4 /HPF (0-4) 05/04/20 19:14 Ur Squamous Epith Cells 1+ /LPF 05/04/20 19:14 Calcium Oxalate Crystal 2+ /LPF 05/04/20 19:14 Urine Bacteria 1+ /LPF 05/04/20 19:14 Urine Mucus 2+ /LPF 05/04/20 19:14 Respiratory Panel Gavin See Note 05/05/20 11:06 Adenovirus (Rapid PCR) Not Detected (Not Detect.) 05/05/20 11:06 B.pert (TEM-PCR) Not Detected (Not Detect.) 05/05/20 11:06 B.parapertussis DNA PCR Not Detected (Not Detect.) 05/05/20 11:06 C. pneumoniae DNA (PCR) Not Detected (Not Detect.) 05/05/20 11:06 Coronavirus (PCR) NEGATIVE (Negative) 05/04/20 19:45 Coronavirus OC43 (PCR) Not Detected (Not Detect.) 05/05/20 11:06 Coronavirus HKU1 (PCR) Not Detected (Not Detect.) 05/05/20 11:06 Coronavirus 229E (PCR) Not Detected (Not Detect.) 05/05/20 11:06 Coronavirus NL63 (PCR) Not Detected (Not Detect.) 05/05/20 11:06 Human Metapneumovir PCR Not Detected (Not Detect.) 05/05/20 11:06 Influenza A (RT-PCR) Not Detected (Not Detect.) 05/05/20 11:06 Influenza Type A (PCR) NEGATIVE (Negative) 05/04/20 19:45 Influenza B (RT-PCR) Not Detected (Not Detect.) 05/05/20 11:06 Influenza Type B (PCR) NEGATIVE (Negative) 05/04/20 19:45 M. pneumoniae (PCR) Not Detected (Not Detect.) 05/05/20 11:06 Parainfluenza 1 (PCR) Not Detected (Not Detect.) 05/05/20 11:06 Parainfluenza 2 (PCR) Not Detected (Not Detect.) 05/05/20 11:06 Parainfluenza 3 (PCR) Not Detected (Not Detect.) 05/05/20 11:06 Parainfluenza 4 (PCR) Not Detected (Not Detect.) 05/05/20 11:06 RSV (PCR) Not Detected (Not Detect.) 05/05/20 11:06 RSV RNA Qual (PCR) NEGATIVE (Negative) 05/04/20 19:45 Entero/Rhino (PCR) Not Detected (Not Detect.) 05/05/20 11:06 SARS-CoV-2 RNA (RT-PCR) Not Detected (Not Detect.) 05/05/20 11:06 Discharge Plan Discharge Anticipated Discharge Date/Time: 05/05/20 15:20 Patient Disposition: Home, Self-Care Referrals: Physician,None [Primary Care Provider] - Discharge Medications: New doxycycline hyclate 100 mg tablet 100 mg PO BID 14 Days Qty: 28 RF: 0 Discharge Orders: Discharge Order (Routine); Ordered 05/05/20 Ordered By: Mars Delgado Diet: advance to usual diet Activity on Discharge: As tolerated Discharge Date/Time: 05/05/20 16:27 Visit Report Forms: Patient Portal Discharge page Care Plan Goals: Resolution of fever Health Concerns: fever Plan of Treatment: Take Doxycycline and follow up with your Doctor in a week, return to ED if symptoms get worse
[2020-05-06 03:11] LABS: CT PCR NOT DETECTED (Not Detect.); NG PCR NOT DETECTED (Not Detect.)
[2020-05-10 14:27] LABS: Babesia IgG <1:64 titer (<1:64); Babesia IgM <1:20 titer (<1:20)
[2020-05-11 15:18] LABS: A. Phagocytophilum Ab IgG <1:64 (<1:64); A. Phagocytophilum Ab IgM <1:20 (<1:20); E. Chaffeensis Ab IgG <1:64 (<1:64); E. Chaffeensis Ab IgM <1:20 (<1:20)
== END 2020-05-05 16:27 | disposition home or self-care (01) | DRG 728 ==
LOC: HO.ED 21:57 → HO.S3 23:59
PROVIDERS: Internal Medicine; Nurse Practitioner Family; Admitting Provider Internal Medicine; Emergency Provider Emergency Medicine; Visit Provider Internal Medicine
DX: A56.2 Chlamydial infection of genitourinary tract, unspecified (principal); N39.0 Urinary tract infection, site not specified; Z20.828 Contact with and (suspected) exposure to other viral communicable diseases
CPT/HCPCS: 0241U; 36415; 71045; 71250; 74176; 76775; 80048; 80076; 81001; 82550; 83605; 83690; 83735; 84484; 85025; 86666; 86753; 87040; 87491; 87591; 87633; 93005; 96361; 96365; 96367; 96375; 99285; 99291; J0692; J0696; J1650; J1885; J2543; J3370

== ENCOUNTER 2024-09-12 22:46 | Emergency (ER) | payer SELFPAY ==
--- NOTE | ~2024-09-12 | CT_ITS ---
CLINICAL HISTORY: right flank pain CT abdomen and pelvis without contrast Comparison: None Findings: No consolidation or effusion. Gallbladder and solid organs are within normal limits. Kidneys are non hydronephrotic. Probable 1.7 cm cyst in the left kidney incompletely characterized on this exam. No bowel obstruction, pneumoperitoneum, or pneumatosis. Appendix is slightly prominent measuring 7 mm diameter. No periappendiceal fat stranding or inflammatory changes are seen. Sigmoid diverticula are present without diverticulitis. Urinary bladder and visualized pelvic structures are normal. No acute fracture. IMPRESSION: 1. Slightly prominent appendix measuring up to 7 mm diameter. No significant periappendiceal fat stranding or inflammatory change. Please correlate clinically. 2. Otherwise unremarkable CT abdomen and pelvis as above. This document has been electronically signed by: Bassem Brandon MD, PHD on 09/13/2024 03:29:59
[2024-09-12 23:13] VITALS: BP 116/62; PULSE 93; RESP 18; TEMP 36.7; O2SAT 97; BMI 24.8
[2024-09-12 23:28] LABS: Basophils Absolute Auto 0.1 X10*3/uL (0.0-0.2); Basophils Percent Auto 0.6 % (0-2); Eosinophils Absolute Auto 0.5 X10*3/uL (0.0-0.4); Eosinophils Percent Auto 4.9 % (0-4); Hemoglobin 15.2 g/dl (14.0-18.0); Imm Gran Abs Auto 0.03 X10*3/uL (0.00-0.03); Imm Gran Pct Auto 0.3 % (0.0-0.4); Lymphocytes Absolute Auto 3.7 X10*3/uL (1.2-4.9); MANUAL DIFF FLAG NO; Mean Corpuscular HGB Conc 34.5 g/dl (31.0-36.0); Mean Corpuscular Hemoglobin 30.2 pg (27.0-33.0); Mean Corpuscular Volume 87.3 fL (80.0-98.0); Mean Platelet Volume 9.8 fL (9.4-12.4); Monocytes Percent Auto 9.9 % (2-11); Neutrophils Absolute Auto 4.7 x10*3/uL (2.0-8.3); Neutrophils Percent Auto 47.3 % (45-73); Platelet Count 256 X10*3/uL (160-400); Red Blood Count 5.04 X10*6/uL (4.60-5.80); Red Cell Distribution Width 13.3 % (11.0-16.0); White Blood Count 9.9 X10*3/uL (4.8-10.8)
[2024-09-12 23:36] LABS: Appearance Urine Clear; Color Urine Yellow; Glucose Urine UA Negative (Negative); Leukocyte Esterase Urine Negative (Negative); Nitrite Urine Negative (Negative); Specific Gravity - Urine >= 1.030 (1.005-1.025); Urine Blood Negative (Negative); Urine Ketones Trace mg/dL (Negative); Urine Protein Negative (Neg-Trace)
[2024-09-12 23:38] LABS: Bacteria Urine None Seen (None Seen); Hyaline Casts Urine 0-2 /LPF (0-2); RBC Urine 0-2 /HPF (0-2); Squamous Epithelial Cell Urine 0-2 /HPF (0-2); WBC Urine 0-5 /HPF (0-5)
[2024-09-12 23:49] LABS: Alanine Aminotransferase 13 U/L (0-40); Alkaline Phosphatase 57 U/L (39-117); Anion Gap 10 (12-20); Aspartate Amino Transferase 15 U/L (5-37); Bilirubin Total 0.3 mg/dL (0.0-1.0); Blood Urea Nitrogen 16 mg/dL (9-16); Carbon Dioxide 24 mmol/L (22-29); Chloride 111 mmol/L (96-108); Creatinine Clr Calc Pharmacy 133.9; Estimated Glomerular Filt Rate > 60; Glucose Random 93 mg/dL (60-115); Potassium 3.6 mmol/L (3.3-5.1); Sodium 141 mmol/L (135-145); Total Protein 6.7 g/dL (6.5-8.0)
--- OUTSIDE RECORDS SUMMARY | 2024-09-13 00:41 | XMS_ITS | Clinical Summary ---
Author Organization [facility] Address [address] [place] [address] Phone Care Team Providers Care Historic Sites Registrar Name Role Phone Unavailable Primary Care Provider Unavailabl e Immunizations Immunization Administration Dates Next Due DTP 02/10/1994, 1,10/25/1989,1988,1988 Hep B, ped/adol 10/13/2002,03/04/2002,01/04/2001 Hib (PRP-T) 04/05/1990 MMR 07/22/1997,04/05/1990 OPV 02/10/1994, 1,04/30/1989,1988 Td (adult) (MBL), 2 Lf tetan us toxoid, PF, adsorbed 01/04/2001 Family History Relation Name Status Comments Brother Alive Brother: Alive and well Sister Alive Sister: Alive a nd well Social History Tobacco Use Types Packs/Day Years Used Date Smoking Tobacco: Never Assessed Sex and Gender Information Value Date Recorded Sex Assigned at Not on file Legal Sex Male 4:11 PM EDT Gender Identity Not on file Sexual Orientation Not on file Plan of Treatment Health Maintenance Due Date Last Done Comments DTaP,Tdap,and Td Vaccines (6 - Tdap) 01/05/2001 01/04/2001, 02/10/1994, 11/12/1990, Additional history exists Varicella Vaccines (1 of 2 - 13+ 2-dose series) 2001 Influenza Vaccines (#1) 2024 COVID-19 Vaccine ( season) 2024 HIB Vaccines Completed 04/05/1990 IPV Vaccines Completed 02/10/1994, 0609/1990, 04/30/1989, Additional history exists MMR Vaccines Completed 07/22/1997, 04/05/1990 Hepatitis B Vaccines Completed 10/13/2002, 03/04/2002, 01/04/2001 HPV Vaccines Aged Out No longer eligi ble based on patient's age to complete this topic Hepatitis A Vaccines Aged Out No long er eligible based on patient's age to complete this topic Men B Vaccine Aged Out No longer elig ible based on patient's age to complete this topic Meningococcal Vaccine Aged Out No cora padilla eligible based on patient's age to complete this topic Pneumococcal Vaccine Aged Out No long er eligible based on patient's age to complete this topic
--- OUTSIDE RECORDS SUMMARY | 2024-09-13 00:41 | XMS_ITS | Encounter Summary ---
Author Organization [facility] Address [address] [place] [address] Phone Care Team Providers Care Sealer Operator Name Role Phone Logan Talamantes MD Primary Care Provider [phone] Encounter Details Date Type Department Care Team (Late st Contact Info) Description 01/25/2017 Conversion Encounter [facility] [address] [place] [address] Social History Tobacco Use Types Packs/Day Years Used Date Smoking Tobacco: Never Assessed Sex and Gender Information Value Date Recorded Sex Assigned at Not on file Legal Sex Male 4:11 PM EDT Gender Identity Not on file Sexual Orientation Not on file documented as of this encounter Plan of Treatment Not on file documented as of this encounter Visit Diagnoses Not on filedocumented in this encounter Care Teams Sealer Operator Relationship Specialty Start Date End Date Logan Talamantes MD [address] [place] [address] PCP - General 01/19/17 12/04/22 documented as of this encounter
--- OUTSIDE RECORDS SUMMARY | 2024-09-13 00:41 | XMS_ITS | Continuity of Care Document ---
Author Organization [facility] Address [address] [place] [phone] Phone Care Team Providers Care Pmo Lead Name Role Phone Provider1, First Unavailable Unavailable Medications Medication Instructions Dosage Effective Dates (start - stop) Status Comments cephalexin 500 mg Cap take 1 capsule (50 0MG) by ORAL route every 8 hours 500 MG - Active Procedures Procedure Date OFFICE VISIT NEW PT INTERMEDIATE 2010 Advance Directives Directive Yes / No Effective Date File Name No Information Encounters Encounter Description Practice Location Reason(s) For Visit Diagnoses Date Provider Providers Copied on Encounter [facility], [address] [place] [address], [id number], tel:[phone] [facility] No Information Provider1 First. . OFFICE VISIT NEW PT INTERMEDIATE [facility] [address] [place] [address], [id number], tel:[phone] ingrown nail (chief complaint) Ingrowing nail [facility]. [address] [place] [address], [id number], [place]. tel:[phone] Family History Family Member Type Diagnosis Age At Onset No Information Payers Payer name Insurance type Covered green party ID Authoriza tion(s) No Information Social History Type Description Quantity Date Captured Comments Alcohol Use Details Unknown Caffeine Use Details Unknown Tobacco Use Status No Information Smoking Status No Information Sex Male Sexual Orientation Choose not to disclose Gender Identity Choose not to disclose 020 Chief Complaint And Reason For Visit No Information Reason For Referral Reason For Referral No Information History Of Present Illness Encounter Date Complaint History Of Prese nt Illness No Information Functional Status Date Functional Assessmen t No Information Instructions Date Instruction To duran Take new medication as prescribe d Assessments Type Assessment Date No Information Patient Care Teams Name Effective Dates (start - stop) Status Members No Information
--- OUTSIDE RECORDS SUMMARY | 2024-09-13 00:41 | XMS_ITS | Continuity of Care Document ---
Author Organization [facility] Address [address] [place] [address] Phone Care Team Providers Care Prisoner Classification Interviewer Name Role Phone Alexx Coley MD Unavailable Unavailable Allergies, Adverse Reactions, Alerts Substance Reaction Status Criticality No Known Allergies Active No Inform ation Medications Medication Instructions Dosage Effective Dates (start - stop) Status Comments doxycycline monohydrate 100 mg tablet take 1 tablet by oral route 2 times every day 100 MG - No Longer Active Tylenol-Codeine #3 300 mg-30 mg tablet take 1 tablet by oral route every 6 hours as needed - No Longer Active Problems Condition Type Effective Dates (start - stop) [facility] Status Comments No Known Problems Procedures Procedure Date OFFICE/OUTPATIENT VISIT, [facility] Advance Directives Directive Yes / No Effective Date File Name No Information Encounters Encounter Description Practice Location Reason(s) For Visit Diagnoses Date Provider Providers Copied on Encounter OFFICE/OUTPATI ENT VISIT, [facility], [address] [place] [address], [id number], [place] tel:[phone] [facility] Bite(s) (chief complaint)a bscess (chief complaint) Cellulitis of back except buttock Vianca Coffey. [address] [place] [address], [id number], [place]. tel:[phone] Family History Family Member Type Diagnosis Age At Onset No Information Payers Payer name Insurance type Covered democrat ID Authoriza tion(s) No Information Social History Type Description Quantity Date Captured Comments Alcohol Use Details Unknown Caffeine Use Details Unknown Tobacco Use Status Never smoked tobacco 2014 Smoking Status Never smoker Non-Smoking Tobacco Use Details : No Details Available : No Details Available Sex Male Vital Signs Date / Time: Height Weight BMI Pulse Rate Blood Pressure Temperature Respiratory Rate Body Surface Area Head Circumference Head Circ. Percentile Wt./Rito. Percentile BMI percentile Pulse Ox Inhaled Ox 9:52 AM 72 /min 130/84 mm[Hg] 98.10 F 20 /min Chief Complaint And Reason For Visit From encounter dated '04/16/2015 09:05'. Bite(s) (chief complaint) abscess (chief complaint). Description: The symptoms began 5 days ago. The symptoms are reported asbeing severe. The symptoms occur constantly. The location is left side upper back. He states the symptoms are acute and are of new onset. States he thinks he was bitten by a bug on sunday .Since noticed redness ,swelling and pain. Reason For Referral Reason For Referral No Information History Of Present Illness Encounter Date Complaint History Of Prese nt Illness Bite(s) abscess The symptoms beg an 5 days ago. The symptoms are reported as being severe. The symptoms occur constantly. The location is left side upper back. He states the symptoms are acute and are of new onset. States he thinks he was bitten by a bug on sunday .Since noticed redness ,swelling and pain. Bite(s) (comments) Patient re ports gradual onset of tender, indurated reddened area on the left upper back over the past 2 days. Unsure of specific precipitants but thinks he may have been bitten by an insect. Denies any exposure to Ticks. Has constant pressure pain that is worse with pressure on it . No other symptoms or modifying factors Functional Status Date Functional Assessmen t Pain Score 10/10 Instructions Date Instruction Additional Infor mation I advise1. warm comp resses several times daily2. apply an antibiotic ointment and dressing3. Doxycycline 100mg twice daily4. Tylenol with codeine one every 6 hours as needed for pain5. note for work- may return on Sunday. If symptopms worsen go to the ER over the weekend. 7. May follow up here as needed Related to Cellulitis of back except buttock Assessments Type Assessment Date assessment Cellulitis of back except buttoc k impression The area on the back is red and swollen but is not quite ready to be lanced. i do not feel a fluctuant area. This may have been caused by an insect bite but I cannot tell you for sure. Mental Status Date Cognitive Assessment Orientation - [place] ed to time, place, person, situation. Patient Care Teams Name Effective Dates (start - stop) Status Members No Information
[2024-09-13] MEDS: Ketorolac Tromethamine 30 MG/ML VIAL IM (02:43)
[2024-09-13 02:54] VITALS: BP 116/72; PULSE 69; RESP 16; TEMP 36.4; O2SAT 99
--- NOTE | 2024-09-13 03:26 | ED_ITS ---
HPI - Male Genitourinary General Chief complaint: Urogenital-Male Stated complaint: right side upper extremity pain Time Seen by Provider: 09/13/24 02:30 Source: patient, RN notes reviewed and old records reviewed Mode of arrival: ambulatory Limitations: no limitations History of Present Illness ED Provider: Tammy SANTIAGO Narrative: 33-year-old male who denies any past medical history presents for evaluation of right mid back pain. He reports his symptoms started 2 days ago. He reports occasional nausea. Denies any abdominal pain, vomiting, constipation or diarrhea. Denies any blood in the urine, burning with urination he denies any cough, shortness of breath or fevers the patient denies any injury, heavy lifting, falls he reports that his pain is stabbing in nature, random but occasionally does hurt with taking a deep breath Related Data Previous Rx's ?Medication ?Instructions ?Recorded doxycycline hyclate 100 mg tablet 100 mg PO BID 14 days #28 tabs 05/05/20 cyclobenzaprine 10 mg tablet 10 mg PO TID PRN muscle spasm #20 09/13/24 tabs Allergies Allergy/AdvReac Type Severity Reaction Status Date / Time No Known Allergies Allergy Unverified 09/12/24 23:17 Review of Systems 2 Constitutional: Constitutional: Denies body ache(s), Denies chills, Denies fever(s) and Denies headache(s) Eyes: Eyes: Denies blurry vision ENT: Denies vertigo, Denies dizziness and Denies headache(s) Cardiovascular: Cardiovascular: Denies chest pain and Denies dyspnea Respiratory: Respiratory: Denies cough and Denies dyspnea Gastrointestinal: Gastrointestinal: Denies abdominal pain, Reports nausea and Denies vomiting Genitourinary: Genitourinary: Denies dysuria and Reports flank pain Musculoskeletal: Musculoskeletal: Reports back pain Integumentary/Breasts: Skin/Breast: Denies rash Neurologic: Denies vertigo, Denies dizziness and Denies headache(s) Psychiatric: Psychiatric: Denies anxiety PMFSH Past Medical History Medical History No known health problems Social History Social History Household Members: Family Housing: House Do you presently have visiting nurse or other home services: No Alcohol intake: never Smoked in Last 30 Days: No Use of substances other than those prescribed or required for medical reasons: Yes Substance Use Type: Marijuana Advance Directives: No Advance Directives Information Provided: Yes service: No Current occupational status: employed Physical Exam 2 Vital Signs: Vital Signs: Last Vital Signs Temp 97.5 F 09/13/24 02:54 Pulse 69 09/13/24 02:54 Resp 16 09/13/24 02:54 BP 116/72 09/13/24 02:54 Pulse Ox 99 09/13/24 02:54 O2 Del Method Room Air 09/13/24 02:54 BMI result Body Mass Index 24.8 Const: General: healthy appearing, comfortable, no acute distress, alert and awake Nutritional Appearance: well nourished Orientation/consciousness: p atient oriented x3 HEENT: Head: Yes normocephalic and Yes atraumatic Eyes: Eyelids: Yes eyelids normal Conjunctivae: conjunctivae normal S clerae: sclerae normal Corneas: corneas normal Pupils: Equal, round and reactive pupils present EOM: EOMs intact bilaterally Neck: Neck: Yes full ROM Resp: Effort & Inspection: normal respiratory effort, able to speak in complete sentences and not labored Cardio: Rate: regular rate Rhythm: regular rhythm GI: Inspection: No distended Palpation (GI): Soft to palpation, not firm, nontender, no guarding and not rigid Back/Spine/Pelvis: Other: tenderness to the right thoracic paraspinous region in the right flank. There are no palpable deformities, no vertebral tenderness. He also has some right lumbar paraspinous tenderness but this is less so than the right thoracic paraspinous tenderness. Skin: General skin exam: elasticity normal Neuro: General: patient oriented x3 Cranial nerves: Yes Equal, round and reactive pupils present and Yes Bilaterally intact EOM present Cognition (Neuro): normal cognition Course Reevaluation(s) Reevaluation #1: patient's CT scan does not show any acute findings. The patient's appendix is upper limits of normal however there was no periappendiceal fat stranding or fluid. I re-evaluated the patient's abdomen, he still has no abdominal pain, tenderness or guarding. The patient's back pain is most likely related to a muscle strain. We will treat with cyclobenzaprine. I did discuss warning signs and when to return if he develops abdominal pain, nausea, vomiting, diarrhea, or fevers to return directly to the ER Time: 03:54 Medications Administered Discontinued Medications Generic Name Dose Route Start Last Admin Trade Name Tran PRN Reason Stop Dose Admin Ketorolac Tromethamine 30 mg 09/13/24 02:38 09/13/24 02:43 Ketorolac Tromethamine 30 Mg/Ml Vial IM 09/13/24 02:39 30 mg ONCE ONE Administration Medical Decision Making Medical Decision Making [facility] Narrative: 33-year-old male who denies any past medical history presents for evaluation of severe right flank pain, right mid back pain for the last 2 days. Denies any specific injury, his vital signs are stable. Denies any abdominal pain, vomiting but does have some nausea which could be related to his pain. Denies any urinary complaints. His labs show no leukocytosis or significant anemia. No significant chemistry abnormalities, renal function is within normal limits, LFTs within normal limits. The patient does have some tenderness on exam, negative CVA tenderness. Given that there is no blood in his urinalysis I feel the obstructive uropathy is less likely but still on differential. He has no evidence of UTI and therefore pyelonephritis is less likely. I think the most likely diagnosis is muscle strain versus constipation. , but we will get a CT scan to rule out obstructive uropathy. abdominal pain It is also positive that he has a right lower lobe pneumonia with referred pain but I feel this is less likely as he is not coughing, short of breath and has no fevers. Differential Diagnosis Differential Diagnoses: The differential diagnosis associated with the presentation includes Muscle strain Constipation Flank pain Obstructive uropathy Pyelonephritis Right lower lobe pneumonia Lab Data [facility] Lab Attestation statement: I reviewed the patient's lab results. no leukocytosis or anemia. Normal platelet count. No electrolyte abnormalities warranting intervention. Renal function within normal limits. LFTs within normal limits 09/12/24 23:24 09/12/24 23:24 Labs: Lab Results 09/12/24 09/12/24 Range/Units 23:24 23:29 WBC 9.9 (4.8-10.8) X10*3/uL RBC 5.04 (4.60-5.80) X10*6/uL Hgb 15.2 (14.0-18.0) g/dl Hct 44.0 (42.0-52.0) % MCV 87.3 (80.0-98.0) fL MCH 30.2 (27.0-33.0) pg MCHC 34.5 (31.0-36.0) g/dl RDW 13.3 (11.0-16.0) % Plt Count 256 (160-400) X10*3/uL MPV 9.8 (9.4-12.4) fL Immature Gran % (Auto) 0.3 (0.0-0.4) % Neut % (Auto) 47.3 (45-73) % Lymph % (Auto) 37.0 (20-40) % [place] % (Auto) 9.9 (2-11) % Eos % (Auto) 4.9 H (0-4) % Baso % (Auto) 0.6 (0-2) % Lymph # (Auto) 3.7 (1.2-4.9) X10*3/uL [place] # (Auto) 1.0 (0.1-1.2) X10*3/uL Eos # (Auto) 0.5 H (0.0-0.4) X10*3/uL Baso # (Auto) 0.1 (0.0-0.2) X10*3/uL Abs Immat Gran (auto) 0.03 (0.00-0.03) X10*3/uL Absolute Neuts (auto) 4.7 (2.0-8.3) x10*3/uL Absolute Nucleated RBC 0.000 (0.0-0.012) X10*3/uL Nucleated RBC % (auto) 0.0 (0.0-0.2) /100WBC Sodium 141 (135-145) mmol/L Potassium 3.6 (3.3-5.1) mmol/L Chloride 111 H (96-108) mmol/L Carbon Dioxide 24 (22-29) mmol/L Anion Gap 10 L (12-20) BUN 16 (9-16) mg/dL Creatinine 0.77 (0.5-1.4) mg/dL Estim Creat Clear Calc 133.9 Estimated GFR > 60 Random Glucose 93 (60-115) mg/dL Calcium 9.0 D (8.4-10.2) mg/dL Total Bilirubin 0.3 (0.0-1.0) mg/dL AST 15 (5-37) U/L ALT 13 (0-40) U/L Alkaline Phosphatase 57 (39-117) U/L Total Protein 6.7 (6.5-8.0) g/dL Albumin 4.0 (3.5-5.0) g/dL Urine Color Yellow Urine Appearance Clear Urine pH 6.0 (5.0-9.0) Ur Specific [place] >= 1.030 H (1.005-1.025) Urine Protein Negative (Neg-Trace) mg/dL Urine Glucose (UA) Negative (Negative) mg/dL Urine Ketones Trace (Negative) mg/dL Urine Blood Negative (Negative) Urine Nitrite Negative (Negative) Ur Leukocyte Esterase Negative (Negative) Urine RBC 0-2 (0-2) /HPF Urine WBC 0-5 (0-5) /HPF Ur Squamous Epith Cells 0-2 (0-2) /HPF Urine Bacteria None Seen (None Seen) Hyaline Casts 0-2 (0-2) /LPF Discharge Plan Discharge Clinical Impression: Acute right flank pain Patient Disposition: Home, Self-Care Instructions: Muscle Strain (ED) Additional Instructions: your workup in the ER today was reassuring. This includes your blood work, CT scan. Your appendix is at the upper limits of normal, but there were no concerning findings to suggest acute appendicitis. You should return to the ER if he develops severe abdominal pain, fevers or worsening pain you may use ibuprofen or Tylenol for your back pain your urinalysis was clear, no signs of infection or blood and there were no kidney stones on the CT scan you may use cyclobenzaprine as needed for muscle spasms, this may make you drowsy, do not drink alcohol or drive after taking it Prescriptions: New cyclobenzaprine 10 mg tablet 10 mg PO TID PRN (Reason: muscle spasm) Qty: 20 0RF No Action doxycycline hyclate 100 mg tablet 100 mg PO BID 14 Days Qty: 28 0RF Print Language: Yi
[2024-09-13 04:00] VITALS: BP 116/72; PULSE 69; RESP 16; TEMP 36.4; O2SAT 99
== END 2024-09-13 04:01 | disposition home or self-care (01) ==
PROVIDERS: Emergency Provider Emergency Medicine
DX: R10.9 Unspecified abdominal pain (principal); F12.90 Cannabis use, unspecified, uncomplicated
CPT/HCPCS: 36415; 74176; 80053; 81001; 85025; 96372; 99284; J1885

== ENCOUNTER → 2024-09-13 02:38 | Outpatient (BNV) | payer SELFPAY | PROVIDERS: Emergency Provider Emergency Medicine; Visit Provider General Practice | DX: R10.9 Unspecified abdominal pain (principal) | CPT/HCPCS: 74176 ==